=== PATIENT | male | born 1985 | race Caucasian/White ===

== ENCOUNTER 2020-01-26 13:39 | Inpatient (IN) ==
[2020-01-26 14:51] LABS: Urine Appearance Clear; Urine Bilirubin Negative (Negative); Urine Blood Negative (Negative); Urine Color Straw; Urine Glucose Negative (Negative); Urine Ketones Negative (Negative); Urine Nitrite Negative (Negative); Urine Protein Negative (Negative); Urine Specific Gravity 1.005 (1.010-1.030); Urine Urobilinogen Negative (Negative)
[2020-01-26 15:14] LABS: Urine Benzodiazepine Screen None Detected (None Detect); Urine Cannabinoids Screen None Detected (None Detect); Urine Opiates Screen None Detected (None Detect)
[2020-01-26 15:21] LABS: ABS Basophils 0.1 10^3/ul (0-0.2); ABS Eosinophils 0.1 10^3/ul (0-0.6); ABS Lymphocytes 2.9 10^3/ul (1.0-4.8); ABS Monocytes 1.2 10^3/ul (0-0.8); ABS Neutrophils 7.7 10^3/ul (1.5-7.7); Eosinophil % 0.9 %; Hematocrit 49 % (42-52); Hemoglobin 16.7 g/dL (14.0-18.0); Lymphocyte % 24.2 %; Mean Corpuscular HGB Conc 34 g/dL (31-36); Mean Corpuscular Hemoglobin 29 pg (27-31); Mean Corpuscular Volume 86 fL (80-94); Mean Platelet Volume 7.4 fL (7.4-10.4); Platelet Count 287 10^3/uL (150-450); Red Blood Count 5.69 10^6 /uL (4.18-5.48); Red Cell Distribution Width 14 % (10-15)
[2020-01-26 15:38] LABS: ALT 16 U/L (7-52); AST 15 U/L (13-39); Albumin 4.8 g/dL (3.2-5.2); Albumin/Globulin Ratio 1.7 (1-3); Alkaline Phosphatase 99 U/L (34-104); BUN/Creatinine Ratio 12.1 (8-20); Blood Urea Nitrogen 12 mg/dL (6-24); CO2 Carbon Dioxide 28 mmol/L (22-32); Calcium 10.1 mg/dL (8.6-10.3); EGFR African American 105.3 (>60); EGFR Non-African American 87.1 (>60); Globulin 2.8 g/dL (2-4); Glucose 89 mg/dL (70-100); Potassium 4.5 mmol/L (3.5-5.0); Sodium 136 mmol/L (135-145); Total Protein 7.6 g/dL (6.4-8.9)
[2020-01-26 16:12] LABS: Anion Gap 8 mmol/L (2-11); Chloride 100 mmol/L (101-111)
[2020-01-26 16:30] LABS: Acetaminophen < 15 mcg/mL; Alcohol, S < 10 mg/dL (<10); Salicylate < 2.50 mg/dL (<30)
[2020-01-27] MEDS: Nicotine PATCH 7 MG/24 HR PATCH TRANSDERM SCH (20:21)
[2020-01-28] MEDS ORDERED: Influenza VAC *QUAD* 2020-21* 0.5 ML SYRINGE IM ONE (09:00)
[2020-01-28] MEDS: Nicotine PATCH 7 MG/24 HR PATCH TRANSDERM SCH (11:30)
[2020-01-29] MEDS: Nicotine PATCH 7 MG/24 HR PATCH TRANSDERM SCH (08:15)
[2020-01-29] MEDS: Nicotine GUM 2MG FRUIT FLAVOR PO PRN ×2 (18:09→20:22)
[2020-01-30] MEDS: Nicotine PATCH 7 MG/24 HR PATCH TRANSDERM SCH (07:47)
[2020-01-30] MEDS: Nicotine GUM 2MG FRUIT FLAVOR PO PRN (08:34)
[2020-01-30 09:57] VITALS: BP 120/78
== END 2020-01-30 16:20 | disposition home or self-care (01) | DRG 897 ==
LOC: ED 13:39 → BSU 18:04
PROVIDERS: ADMIT Psychiatry & Neurology Psychiatry; ATTEND Psychiatry & Neurology Psychiatry

== ENCOUNTER 2020-02-11 20:17 | Inpatient (IN) ==
[2020-02-11 21:19] LABS: Urine Appearance Clear; Urine Bilirubin Negative (Negative); Urine Blood Negative (Negative); Urine Color Yellow; Urine Glucose Negative (Negative); Urine Ketones Negative (Negative); Urine Nitrite Negative (Negative); Urine Protein Negative (Negative); Urine Specific Gravity 1.027 (1.010-1.030); Urine Urobilinogen Negative (Negative)
[2020-02-11 21:22] LABS: Urine Bacteria Absent (Absent); Urine Red Blood Cell Trace(0-2/hpf) (Absent); Urine White Blood Cell Trace(0-5/hpf) (Absent)
[2020-02-11 21:27] LABS: ABS Basophils 0.1 10^3/ul (0-0.2); ABS Eosinophils 0.2 10^3/ul (0-0.6); ABS Lymphocytes 1.6 10^3/ul (1.0-4.8); ABS Monocytes 0.9 10^3/ul (0-0.8); ABS Neutrophils 9.4 10^3/ul (1.5-7.7); Eosinophil % 1.6 %; Hematocrit 43 % (42-52); Hemoglobin 14.3 g/dL (14.0-18.0); Lymphocyte % 13.3 %; Mean Corpuscular HGB Conc 33 g/dL (31-36); Mean Corpuscular Hemoglobin 29 pg (27-31); Mean Corpuscular Volume 86 fL (80-94); Mean Platelet Volume 7.3 fL (7.4-10.4); Platelet Count 206 10^3/uL (150-450); Red Blood Count 4.94 10^6 /uL (4.18-5.48); Red Cell Distribution Width 14 % (10-15); White Blood Count 12.1 10^3/uL (3.5-10.8)
[2020-02-11 21:38] LABS: ALT 11 U/L (7-52); AST 11 U/L (13-39); Albumin 3.8 g/dL (3.2-5.2); Albumin/Globulin Ratio 1.4 (1-3); Alkaline Phosphatase 94 U/L (34-104); Anion Gap 5 mmol/L (2-11); BUN/Creatinine Ratio 16.7 (8-20); Blood Urea Nitrogen 17 mg/dL (6-24); CO2 Carbon Dioxide 29 mmol/L (22-32); Calcium 8.7 mg/dL (8.6-10.3); Chloride 101 mmol/L (101-111); EGFR African American 101.8 (>60); EGFR Non-African American 84.1 (>60); Globulin 2.7 g/dL (2-4); Glucose 76 mg/dL (70-100); Potassium 4.1 mmol/L (3.5-5.0); Sodium 135 mmol/L (135-145); Total Protein 6.5 g/dL (6.4-8.9)
[2020-02-11 21:41] LABS: Urine Benzodiazepine Screen None Detected (None Detect); Urine Cannabinoids Screen Presumptive Positive (None Detect); Urine Opiates Screen None Detected (None Detect)
[2020-02-11 21:59] LABS: TSH Ultra Thyroid Stim Horm 4.34 mcIU/mL (0.34-5.60)
[2020-02-11 22:05] LABS: Acetaminophen < 15 mcg/mL; Alcohol, S < 10 mg/dL (<10)
[2020-02-11 22:06] LABS: Salicylate < 2.50 mg/dL (<30)
[2020-02-12] MEDS: Nicotine PATCH 21 MG/24 HR PATCH TRANSDERM SCH (11:56)
[2020-02-12] MEDS: Vitamin THERAPEUTIC TAB PO SCH (11:56)
[2020-02-12] MEDS: Nicotine GUM 2MG FRUIT FLAVOR PO PRN ×2 (14:17→17:12)
[2020-02-12] MEDS: Al Hydrox/Mg Hydrox/Simet LIQ 30 ML UDC PO PRN (23:20)
[2020-02-13] MEDS: Nicotine GUM 2MG FRUIT FLAVOR PO PRN ×2 (09:00→11:04)
[2020-02-13] MEDS: Nicotine PATCH 21 MG/24 HR PATCH TRANSDERM SCH (09:00)
[2020-02-13] MEDS: Vitamin THERAPEUTIC TAB PO SCH (10:51)
[2020-02-13] MEDS: Al Hydrox/Mg Hydrox/Simet LIQ 30 ML UDC PO PRN ×3 (11:04→22:48)
[2020-02-14] MEDS: Vitamin THERAPEUTIC TAB PO SCH (09:47)
[2020-02-14] MEDS: Al Hydrox/Mg Hydrox/Simet LIQ 30 ML UDC PO PRN ×3 (09:47→19:29)
[2020-02-14] MEDS: Nicotine PATCH 21 MG/24 HR PATCH TRANSDERM SCH (09:48)
[2020-02-14] MEDS: Nicotine GUM 2MG FRUIT FLAVOR PO PRN (15:50)
[2020-02-15] MEDS: Vitamin THERAPEUTIC TAB PO SCH (09:32)
[2020-02-15] MEDS: Nicotine PATCH 21 MG/24 HR PATCH TRANSDERM SCH (09:32)
[2020-02-15] MEDS: Nicotine GUM 2MG FRUIT FLAVOR PO PRN (09:32)
[2020-02-15 09:56] VITALS: BP 123/78
== END 2020-02-15 15:25 | disposition home or self-care (01) | DRG 897 ==
LOC: ED 20:17 → BSU 23:45
PROVIDERS: ADMIT Psychiatry & Neurology Psychiatry; ATTEND Psychiatry & Neurology Psychiatry

== ENCOUNTER 2020-04-25 12:12 | Inpatient (IN) ==
[2020-04-25] MEDS ORDERED: Bacitracin OINTMENT TUBE TOPICAL ONE (12:59)
[2020-04-25 13:53] LABS: ABS Eosinophils 0.2 10^3/ul (0-0.6); ABS Lymphocytes 2.1 10^3/ul (1.0-4.8); ABS Monocytes 0.7 10^3/ul (0-0.8); ABS Neutrophils 4.6 10^3/ul (1.5-7.7); Eosinophil % 2.6 %; Hematocrit 45 % (42-52); Lymphocyte % 27.6 %; Mean Corpuscular HGB Conc 34 g/dL (31-36); Mean Corpuscular Hemoglobin 30 pg (27-31); Mean Corpuscular Volume 88 fL (80-94); Mean Platelet Volume 7.9 fL (7.4-10.4); Platelet Count 226 10^3/uL (150-450); Red Blood Count 5.08 10^6 /uL (4.18-5.48); Red Cell Distribution Width 15 % (10-15); White Blood Count 7.7 10^3/uL (3.5-10.8)
[2020-04-25 14:13] LABS: Acetaminophen < 15 mcg/mL; Alcohol, S 11 mg/dL (<10)
[2020-04-25 14:14] LABS: ALT 50 U/L (7-52); Albumin 4.4 g/dL (3.2-5.2); Albumin/Globulin Ratio 1.6 (1-3); Alkaline Phosphatase 103 U/L (34-104); BUN/Creatinine Ratio 15.7 (8-20); Blood Urea Nitrogen 16 mg/dL (6-24); CO2 Carbon Dioxide 27 mmol/L (22-32); Calcium 9.5 mg/dL (8.6-10.3); Chloride 106 mmol/L (101-111); EGFR African American 101.2 (>60); EGFR Non-African American 83.6 (>60); Globulin 2.8 g/dL (2-4); Glucose 109 mg/dL (70-100); Sodium 140 mmol/L (135-145); Total Protein 7.2 g/dL (6.4-8.9)
[2020-04-25 14:29] LABS: TSH Ultra Thyroid Stim Horm 2.14 mcIU/mL (0.34-5.60)
[2020-04-25 14:51] LABS: Anion Gap 7 mmol/L (2-11); Potassium 4.3 mmol/L (3.5-5.0)
[2020-04-25 14:53] LABS: AST 25 U/L (13-39)
[2020-04-25 17:36] LABS: Urine Benzodiazepine Screen Presumptive Positive (None Detect); Urine Cannabinoids Screen None Detected (None Detect); Urine Opiates Screen None Detected (None Detect)
[2020-04-25 17:43] LABS: Urine Appearance Clear; Urine Bilirubin Negative (Negative); Urine Blood Negative (Negative); Urine Color Straw; Urine Glucose Negative (Negative); Urine Ketones Negative (Negative); Urine Nitrite Negative (Negative); Urine Protein Negative (Negative); Urine Specific Gravity 1.005 (1.010-1.030); Urine Urobilinogen Negative (Negative)
[2020-04-25 21:06] LABS: Urine Benzodiazepine Screen Presumptive Positive (None Detect); Urine Buprenorphine Screen None Detected (None Detect); Urine Cannabinoids Screen None Detected (None Detect); Urine Fentanyl Screen None Detected (None Detect); Urine Hydrocodone Screen None Detected (None Detect); Urine Opiates Screen None Detected (None Detect)
[2020-04-26] MEDS: Vitamin THERAPEUTIC TAB PO SCH (08:22)
[2020-04-26] MEDS: Al Hydrox/Mg Hydrox/Simet LIQ 30 ML UDC PO PRN (20:53)
[2020-04-27] MEDS: Vitamin THERAPEUTIC TAB PO SCH (08:27)
[2020-04-28 07:09] LABS: HDL Cholesterol 62.3 mg/dL
[2020-04-28] MEDS: Vitamin THERAPEUTIC TAB PO SCH (08:51)
[2020-04-29] MEDS: Vitamin THERAPEUTIC TAB PO SCH (08:21)
[2020-04-29] MEDS: Al Hydrox/Mg Hydrox/Simet LIQ 30 ML UDC PO PRN ×3 (10:57→19:23)
[2020-04-29] MEDS: PTO: Cariprazine 3 mg CAP (NF) PO SCH (13:28)
[2020-04-29] MEDS: Silver Sulfadiazine 1% 85 GM TOPICAL SCH ×2 (13:30→20:59)
[2020-04-29 16:23] LABS: Urine Benzodiazepine Screen Presumptive Positive (None Detect); Urine Cannabinoids Screen None Detected (None Detect); Urine Opiates Screen None Detected (None Detect)
[2020-04-30] MEDS: Al Hydrox/Mg Hydrox/Simet LIQ 30 ML UDC PO PRN ×2 (00:41→16:37)
[2020-04-30] MEDS: Vitamin THERAPEUTIC TAB PO SCH (08:30)
[2020-04-30] MEDS: PTO: Cariprazine 3 mg CAP (NF) PO SCH (08:30)
[2020-04-30] MEDS: Silver Sulfadiazine 1% 85 GM TOPICAL SCH ×2 (10:13→21:19)
[2020-05-01] MEDS: PTO: Cariprazine 3 mg CAP (NF) PO SCH (08:12)
[2020-05-01] MEDS: Vitamin THERAPEUTIC TAB PO SCH (08:12)
[2020-05-01] MEDS: Silver Sulfadiazine 1% 85 GM TOPICAL SCH ×2 (08:13→21:03)
[2020-05-01] MEDS: Nicotine PATCH 21 MG/24 HR PATCH TRANSDERM SCH (14:14)
[2020-05-01] MEDS: Nicotine GUM 4MG FRUIT FLAVOR PO PRN (14:14)
[2020-05-02] MEDS: Vitamin THERAPEUTIC TAB PO SCH (08:46)
[2020-05-02] MEDS: Nicotine PATCH 21 MG/24 HR PATCH TRANSDERM SCH (08:46)
[2020-05-02] MEDS: PTO: Cariprazine 3 mg CAP (NF) PO SCH (08:47)
[2020-05-02] MEDS: Silver Sulfadiazine 1% 85 GM TOPICAL SCH ×2 (08:48→20:19)
[2020-05-02] MEDS: Nicotine GUM 4MG FRUIT FLAVOR PO PRN (09:23)
[2020-05-02] MEDS: Al Hydrox/Mg Hydrox/Simet LIQ 30 ML UDC PO PRN (16:01)
[2020-05-03] MEDS: Nicotine PATCH 21 MG/24 HR PATCH TRANSDERM SCH (07:41)
[2020-05-03] MEDS: Vitamin THERAPEUTIC TAB PO SCH (07:52)
[2020-05-03] MEDS: PTO: Cariprazine 3 mg CAP (NF) PO SCH (07:53)
[2020-05-03] MEDS: Silver Sulfadiazine 1% 85 GM TOPICAL SCH ×2 (07:54→19:45)
[2020-05-03] MEDS: Nicotine GUM 4MG FRUIT FLAVOR PO PRN ×3 (09:13→20:32)
[2020-05-04] MEDS: PTO: Cariprazine 3 mg CAP (NF) PO SCH (08:20)
[2020-05-04] MEDS: Nicotine PATCH 21 MG/24 HR PATCH TRANSDERM SCH (08:20)
[2020-05-04] MEDS: Vitamin THERAPEUTIC TAB PO SCH (08:21)
[2020-05-04] MEDS: Silver Sulfadiazine 1% 85 GM TOPICAL SCH ×2 (08:21→21:19)
[2020-05-04] MEDS: Nicotine GUM 4MG FRUIT FLAVOR PO PRN ×2 (08:24→21:15)
[2020-05-05] MEDS: Nicotine PATCH 21 MG/24 HR PATCH TRANSDERM SCH (08:05)
[2020-05-05] MEDS: Vitamin THERAPEUTIC TAB PO SCH (08:05)
[2020-05-05] MEDS: Silver Sulfadiazine 1% 85 GM TOPICAL SCH ×2 (08:06→20:14)
[2020-05-05] MEDS: PTO: Cariprazine 3 mg CAP (NF) PO SCH (08:06)
[2020-05-05] MEDS: Nicotine GUM 4MG FRUIT FLAVOR PO PRN ×3 (08:09→18:30)
[2020-05-06] MEDS: Nicotine PATCH 21 MG/24 HR PATCH TRANSDERM SCH (08:11)
[2020-05-06] MEDS: Vitamin THERAPEUTIC TAB PO SCH (08:11)
[2020-05-06] MEDS: Silver Sulfadiazine 1% 85 GM TOPICAL SCH (08:13)
[2020-05-06 08:39] VITALS: BP 126/77
[2020-05-06] MEDS: Nicotine GUM 4MG FRUIT FLAVOR PO PRN (12:37)
== END 2020-05-06 13:15 | disposition home or self-care (01) | DRG 750 ==
LOC: ED 12:12 → BSU 20:24
PROVIDERS: ADMIT Psychiatry & Neurology Psychiatry; ATTEND Psychiatry & Neurology Psychiatry

== ENCOUNTER 2020-05-10 19:48 | Inpatient (IN) ==
[2020-05-10 20:06] LABS: Urine Appearance Clear; Urine Bilirubin Negative (Negative); Urine Blood Negative (Negative); Urine Color Yellow; Urine Glucose Negative (Negative); Urine Ketones Negative (Negative); Urine Nitrite Negative (Negative); Urine Protein Negative (Negative); Urine Specific Gravity 1.012 (1.010-1.030); Urine Urobilinogen Negative (Negative)
[2020-05-10 20:22] LABS: ABS Basophils 0.1 10^3/ul (0-0.2); ABS Eosinophils 0.3 10^3/ul (0-0.6); ABS Lymphocytes 3.2 10^3/ul (1.0-4.8); ABS Neutrophils 4.1 10^3/ul (1.5-7.7); Eosinophil % 3.8 %; Hematocrit 40 % (42-52); Hemoglobin 13.7 g/dL (14.0-18.0); Lymphocyte % 36.7 %; Mean Corpuscular HGB Conc 35 g/dL (31-36); Mean Corpuscular Hemoglobin 30 pg (27-31); Mean Corpuscular Volume 86 fL (80-94); Mean Platelet Volume 7.3 fL (7.4-10.4); Platelet Count 265 10^3/uL (150-450); Red Blood Count 4.58 10^6 /uL (4.18-5.48); Red Cell Distribution Width 15 % (10-15); White Blood Count 8.8 10^3/uL (3.5-10.8)
[2020-05-10 20:28] LABS: Urine Benzodiazepine Screen None Detected (None Detect); Urine Cannabinoids Screen None Detected (None Detect); Urine Opiates Screen None Detected (None Detect)
[2020-05-10 20:38] LABS: ALT 89 U/L (7-52); Albumin/Globulin Ratio 1.6 (1-3); Alkaline Phosphatase 92 U/L (34-104); BUN/Creatinine Ratio 14.9 (8-20); Blood Urea Nitrogen 15 mg/dL (6-24); CO2 Carbon Dioxide 27 mmol/L (22-32); Calcium 9.3 mg/dL (8.6-10.3); Chloride 107 mmol/L (101-111); EGFR African American 102.3 (>60); EGFR Non-African American 84.6 (>60); Globulin 2.5 g/dL (2-4); Glucose 112 mg/dL (70-100); Sodium 140 mmol/L (135-145); Total Protein 6.5 g/dL (6.4-8.9)
[2020-05-10 21:12] LABS: Acetaminophen < 15 mcg/mL; Alcohol, S < 10 mg/dL (<10); Salicylate < 2.50 mg/dL (<30)
[2020-05-10 21:28] LABS: TSH Ultra Thyroid Stim Horm 7.61 mcIU/mL (0.34-5.60)
[2020-05-10 21:51] LABS: AST 28 U/L (13-39); Anion Gap 6 mmol/L (2-11); Potassium 4.2 mmol/L (3.5-5.0)
[2020-05-11] MEDS ORDERED: Al Hydrox/Mg Hydrox/Simet LIQ 30 ML UDC PO PRN (01:41)
[2020-05-11] MEDS ORDERED: Nicotine GUM 2MG FRUIT FLAVOR PO PRN (02:00)
[2020-05-11] MEDS: Vitamin THERAPEUTIC TAB PO SCH (09:53)
[2020-05-11] MEDS: Nicotine PATCH 21 MG/24 HR PATCH TRANSDERM SCH (09:53)
[2020-05-11] MEDS: Silver Sulfadiazine 1% 20 gm TUBE TOPICAL SCH ×2 (11:06→20:12)
[2020-05-12] MEDS: Nicotine PATCH 21 MG/24 HR PATCH TRANSDERM SCH (09:02)
[2020-05-12] MEDS: Vitamin THERAPEUTIC TAB PO SCH (09:02)
[2020-05-12] MEDS: Silver Sulfadiazine 1% 20 gm TUBE TOPICAL SCH ×3 (09:03→19:33)
[2020-05-13 11:10] VITALS: BP 115/78
[2020-05-13] MEDS: Silver Sulfadiazine 1% 20 gm TUBE TOPICAL SCH (11:13)
[2020-05-13] MEDS: Nicotine PATCH 21 MG/24 HR PATCH TRANSDERM SCH (11:13)
[2020-05-13] MEDS: Vitamin THERAPEUTIC TAB PO SCH (11:13)
== END 2020-05-13 13:10 | DRG 750 ==
LOC: ED 19:48 → BSU 23:15
PROVIDERS: ADMIT Psychiatry & Neurology Psychiatry; ATTEND Psychiatry & Neurology Psychiatry